=== PATIENT | male | born 1985 | race Caucasian/White ===

== ENCOUNTER 2019-05-22 02:29 | Emergency (ER) | payer SELFPAY ==
[2019-05-22 03:15] VITALS: BMI 18.9
--- NOTE | 2019-05-22 05:35 | PDOC ---
History of Present Illness - General Chief Complaint: Nausea/Vomiting Stated Complaint: HEADACHE/VOMITING Time Seen by Provider: 05/22/19 05:19 History Source: Patient Exam Limitations: No Limitations - History of Present Illness Initial Comments: 05/22/19 05:35 33 yo M with no past medical history presents to the emergency department with headache, nasal congestion, and poor appetite since yesterday. Denies trauma. Denies acute onset. Pain was gradual onset. Throbbing in nature and located in the temples, occipital, and frontal region. Denies FND and visual disturbance. Denies nausea and vomiting. Denies fever. Denies recent sick contacts. Allergies: NKDA Shx: None Past History - Past Medical History Allergies/Adverse Reactions: Allergies Allergy/AdvReac Type Severity Reaction Status Date / Time No Known Allergies Allergy Verified 05/22/19 03:15 Home Medications: Ambulatory Orders NK [No Known Home Medication] 05/22/19 - Suicide/Smoking/Psychosocial Hx Smoking History: Never smoked Hx Alcohol Use: Yes Drug/Substance Use Hx: No Review of Systems - Review of Systems Able to Perform ROS?: Yes Is the patient limited Persian proficient: No Constitutional: No: Chills, Diaphoresis, Fever, Weakness HEENTM: Yes: Nose Congestion. No: Eye Pain, Ear Pain, Nose Pain, Throat Pain, Mouth Pain Respiratory: No: Cough, Shortness of Breath, SOB with Exertion Cardiac (ROS): No: Chest Pain, Lightheadedness, Palpitations, Syncope ABD/GI: No: Constipated, Diarrhea, Nausea, Rectal Bleeding, Vomiting, Tarry Stools : No: Burning, Dysuria, Hematuria, Incontinence Musculoskeletal: No: Back Pain, Joint Pain, Neck Pain Integumentary: No: Bruising, Erythema, Rash Neurological: Yes: Headache. No: Numbness, Paresthesia, Tingling, Tremors, Ataxia Psychiatric: No: Change in Appetite Endocrine: No: Unexplained Weight Gain Hematologic/Lymphatic: No: Anemia *Physical Exam - Vital Signs Last Vital Signs Temp Pulse Resp BP Pulse Ox 98.6 F 81 18 122/85 100 05/22/19 03:25 05/22/19 03:25 05/22/19 03:25 05/22/19 03:25 05/22/19 03:25 - Physical Exam General Appearance: Yes: Nourished, Appropriately Dressed. No: Apparent Distress, Intoxicated HEENT: positive: EOMI, MARLON, Normal Voice, Symmetrical, TMs Normal, Pharynx Normal, Nasal Congestion, Rhinorrhea, Hearing Grossly Normal. negative: Normal ENT Inspection, Pale Conjunctivae, Scleral Icterus (R), Scleral Icterus (L), Muffled/Hoarse voice, Pharyngeal Erythema, Tonsillar Exudate, Tonsillar Erythema , Sinus Tenderness Neck: positive: Trachea midline, Supple. negative: Tender, Lymphadenopathy (R) , Lymphadenopathy (L), Tender lateral, Tender midline Respiratory/Chest: positive: Lungs Clear, Normal Breath Sounds. negative: Chest Tender, Respiratory Distress, Accessory Muscle Use, Crackles, Rales, Rhonchi, Stridor, Wheezing, Hyperresonant Cardiovascular: positive: Regular Rhythm, Regular Rate, S1, S2. negative: Systolic Murmur Gastrointestinal/Abdominal: positive: Normal Bowel Sounds, Flat, Soft. negative : Tender, Distended, Guarding, Rebound Lymphatic: negative: Adenopathy Musculoskeletal: positive: Normal Inspection. negative: CVA Tenderness, Vertebral Tenderness Extremity: positive: Normal Capillary Refill, Normal Inspection, Normal Range of Motion. negative: Tender, Swelling, Calf Tenderness Integumentary: positive: Normal Color, Dry, Warm. negative: Cold, Clammy, Swelling, Ecchymosis Neurologic: positive: polisher eyeglass frames II-XII NML intact, Fully Oriented, Alert, Normal Mood/ Affect, Normal Response, Motor Strength 5/5. negative: EOM Palsy, Numbness, Sensory Deficit ED Treatment Course - LABORATORY CBC & Chemistry Diagram: 05/22/19 06:20 05/22/19 06:20 Medical Decision Making - Medical Decision Making 33 yo M with no past medical history presents to the emergency department with headache, nasal congestion, and poor appetite since yesterday. Denies trauma. Initial vitals: Initial Vital Signs Temp Pulse Resp BP Pulse Ox 98.3 F 73 16 123/87 100 05/22/19 02:29 05/22/19 02:29 05/22/19 02:29 05/22/19 02:29 05/22/19 02:29 Work up: ddx: URI vs sinusitis will give pseudophedrine, claritin will order cbc, cmp will reassess. Laboratory Tests 05/22/19 05/22/19 06:20 06:20 WBC 10.2 H RBC 4.87 Hgb 15.1 Hct 44.1 MCV 90.6 MCH 31.1 MCHC 34.3 RDW 13.4 Plt Count 230 MPV 9.7 Absolute Neuts (auto) 7.9 Neutrophils % 76.9 Lymphocytes % 17.6 Monocytes % 4.2 Eosinophils % 0.7 Basophils % 0.6 Nucleated RBC % 0 Sodium 140 Potassium 4.2 Chloride 106 Carbon Dioxide 28 Anion Gap 5 L BUN 11.4 Creatinine 0.9 Est GFR (CKD-EPI)AfAm 131.44 Est GFR (CKD-EPI)NonAf 113.41 Random Glucose 133 H Calcium 9.1 Total Bilirubin 0.5 AST 25 ALT 29 Alkaline Phosphatase 76 Total Protein 8.0 Albumin 4.2 Patient to be signed out to Dr. Montejo *DC/Admit/Observation/Transfer Diagnosis at time of Disposition: Headache Qualifiers: Headache type: unspecified Headache chronicity pattern: acute headache Intractability: not intractable Qualified Code(s): R51 - Headache - Discharge Dispostion Disposition: HOME Condition at time of disposition: Improved - Referrals Referrals: [facility] – [place] Internal Med at [place] [Provider Group] Rolando Kothari DO [Staff Physician] - - Patient Instructions Printed Discharge Instructions: DI for Common Cold, DI for Headache Additional Instructions: You came into the ER with a headache and a cold. We gave you some medications which made you feel much better. Please make sure to follow up with both your primary care doctor and a neurologist in the next 3 to 5 days. Come back to the ER immediately if your pain worsens or you have any other new or worsening concerns. Thank you for coming to the [facility] ER. We hope you feel better soon! Print Language: MOHAWK - Post Discharge Activity
[2019-05-22] MEDS ORDERED: PSEUDOEPHEDRINE HCL 30 MG TABLET PO ONE (05:37)
[2019-05-22] MEDS ORDERED: LORATADINE 10 MG TABLET PO ONE (05:37)
[2019-05-22] MEDS ORDERED: PSEUDOEPHEDRINE HCL 60 MG TABLET ONE (05:41)
[2019-05-22] MEDS ORDERED: LORATADINE 10 MG TABLET ONE (05:41)
[2019-05-22] MEDS ORDERED: SODIUM CHLORIDE 0.9% 500 ML INFUS.BAG IV ONE (05:55)
[2019-05-22] MEDS ORDERED: METOCLOPRAMIDE HCL INJECTION 10 MG/2 ML VIAL IM ONE (05:55)
--- NOTE | 2019-05-22 06:09 | PDOC ---
Attending Attestation - Resident Resident Name: Maximus Lafleur - ED Attending Attestation I have performed the following: I have examined & evaluated the patient, The case was reviewed & discussed with the resident, I agree w/resident's findings & plan - HPI HPI: 05/22/19 06:08 Pt has nausea and vomiting and sinus pressure and headache and stuffiness. - Physicial Exam PE: 05/22/19 06:09 Agree with resident exam. - Medical Decision Making 05/22/19 07:19 Labs are normal; vitals normal; radiography pending. Pt will be signed out to the day team. EKG pending.
[2019-05-22] MEDS ORDERED: METOCLOPRAMIDE HCL INJECTION 10 MG/2 ML VIAL ONE (06:22)
[2019-05-22 06:37] LABS: BASO % 0.6 % (0-2.0); EOS % 0.7 % (0-4.5); HEMATOCRIT 44.1 % (35.4-49); HEMOGLOBIN 15.1 GM/dL (11.7-16.9); LYMPH % 17.6 % (8-40); MCH 31.1 pg (25.7-33.7); MCHC 34.3 g/dl (32.0-35.9); MEAN CELL VOLUME 90.6 fl (80-96); MEAN PLT VOLUME 9.7 fl (7.5-11.1); MONO % 4.2 % (3.8-10.2); NEUT % 76.9 % (42.8-82.8); PLATELET COUNT 230 K/MM3 (134-434); RBC 4.87 M/mm3 (4.00-5.60); RDW 13.4 % (11.9-15.9); WHITE BLOOD COUNT 10.2 K/mm3 (4.0-10.0)
[2019-05-22] MEDS ORDERED: METOCLOPRAMIDE HCL INJECTION 10 MG/2 ML VIAL IVPB ONE (06:37)
[2019-05-22 06:54] LABS: ALBUMIN 4.2 g/dl (3.4-5.0); BILIRUBIN,TOTAL 0.5 mg/dL (0.2-1); BLOOD UREA NITROGEN 11.4 mg/dL (7-18); CALCIUM 9.1 mg/dL (8.5-10.1); CREATININE 0.9 mg/dL (0.55-1.3); POTASSIUM 4.2 mmol/L (3.5-5.1)
--- NOTE | 2019-05-22 07:29 | PDOC ---
*Physical Exam - Vital Signs Last Vital Signs Temp Pulse Resp BP Pulse Ox 98.6 F 86 17 123/80 99 05/22/19 07:08 05/22/19 07:08 05/22/19 07:08 05/22/19 07:08 05/22/19 07:08 - Physical Exam General Appearance: Yes: Nourished, Appropriately Dressed. No: Apparent Distress HEENT: positive: Normal ENT Inspection, Normal Voice Neck: positive: Supple Respiratory/Chest: positive: Lungs Clear, Normal Breath Sounds Cardiovascular: positive: Regular Rhythm, Regular Rate Vascular Pulses: Dorsalis-Pedis (R): 2+, Doralis-Pedis (L): 2+ Gastrointestinal/Abdominal: positive: Soft Rectal Exam: positive: deferred Lymphatic: negative: Adenopathy Musculoskeletal: positive: Normal Inspection Extremity: positive: Normal Capillary Refill, Normal Inspection, Normal Range of Motion Integumentary: positive: Normal Color, Dry, Warm Neurologic: positive: Fully Oriented, Alert, Normal Mood/Affect ED Treatment Course - LABORATORY CBC & Chemistry Diagram: 05/22/19 06:20 05/22/19 06:20 - ADDITIONAL ORDERS Additional order review: Laboratory Results 05/22/19 06:20 Sodium 140 Potassium 4.2 Chloride 106 Carbon Dioxide 28 Anion Gap 5 L BUN 11.4 Creatinine 0.9 Est GFR (CKD-EPI)AfAm 131.44 Est GFR (CKD-EPI)NonAf 113.41 Random Glucose 133 H Calcium 9.1 Total Bilirubin 0.5 AST 25 ALT 29 Alkaline Phosphatase 76 Total Protein 8.0 Albumin 4.2 05/22/19 06:20 RBC 4.87 MCV 90.6 MCHC 34.3 RDW 13.4 MPV 9.7 Neutrophils % 76.9 Lymphocytes % 17.6 Monocytes % 4.2 Eosinophils % 0.7 Basophils % 0.6 - Medications Given in the ED: ED Medications Discontinued Medications Generic Name Dose Route Start Last Admin Trade Name Freq PRN Reason Stop Dose Admin Loratadine 10 mg 05/22/19 05:37 05/22/19 05:46 Claritin - PO 05/22/19 05:38 10 mg ONCE ONE Administration Metoclopramide HCl 10 mg 05/22/19 05:55 05/22/19 06:38 Reglan Injection - IM 05/22/19 05:56 Not Given ONCE ONE Metoclopramide HCl 10 mg 05/22/19 06:37 05/22/19 06:39 Reglan Injection - IVPB 05/22/19 06:38 10 mg ONCE ONE Administration Pseudoephedrine HCl 30 mg 05/22/19 05:37 05/22/19 05:46 Sudafed - PO 05/22/19 05:38 30 mg ONCE ONE Administration Sodium Chloride 1,000 ml 05/22/19 05:55 05/22/19 06:32 Normal Saline - IV 05/22/19 05:56 1,000 ml ONCE ONE Administration Medical Decision Making - Medical Decision Making Patient signed out to me from night team pending re-evaluation. On my re-assessment the patient is completely asymptomatic. He reported complete relief of his headache and other symptoms and requests to be discharged. EKG: NS rate of 82, narrow complexes, normal axis, no hypertrophy, benign early repol in lead V2, no abnormal TWI. Impression: Normal EKG and normal sinus rhythm. Disposition: Home with PCP follow up. *DC/Admit/Observation/Transfer Diagnosis at time of Disposition: Headache Qualifiers: Headache type: unspecified Headache chronicity pattern: acute headache Intractability: not intractable Qualified Code(s): R51 - Headache - Discharge Dispostion Disposition: HOME Condition at time of disposition: Improved Decision to Admit order: No - Referrals Referrals: [facility] [place] [facility] [place] [Provider Group] Rolando Kothari DO [Staff Physician] - - Patient Instructions Printed Discharge Instructions: DI for Headache, DI for Common Cold Additional Instructions: You came into the ER with a headache and a cold. We gave you some medications which made you feel much better. Please make sure to follow up with both your primary care doctor and a neurologist in the next 3 to 5 days. Come back to the ER immediately if your pain worsens or you have any other new or worsening concerns. Thank you for coming to the [facility] ER. We hope you feel better soon! Print Language: SAMI - Post Discharge Activity
--- NOTE | 2019-05-22 07:33 | PDOC ---
*Physical Exam - Vital Signs Last Vital Signs Temp Pulse Resp BP Pulse Ox 98.6 F 86 17 123/80 99 05/22/19 07:08 05/22/19 07:08 05/22/19 07:08 05/22/19 07:08 05/22/19 07:08 - Physical Exam Comments: 05/22/19 07:31 Gen: aaox3, nad heart: +s1s2 reg lungs: cta b/l abd:soft, nt/nd +bs ext: no c/c/e neuro: cn ii-xii grossly intact, no focal deficits, muscle strength 5/5 UE and LE, sensation intact skin: no rashes ED Treatment Course - LABORATORY CBC & Chemistry Diagram: 05/22/19 06:20 05/22/19 06:20 - ADDITIONAL ORDERS Additional order review: Laboratory Results 05/22/19 06:20 Sodium 140 Potassium 4.2 Chloride 106 Carbon Dioxide 28 Anion Gap 5 L BUN 11.4 Creatinine 0.9 Est GFR (CKD-EPI)AfAm 131.44 Est GFR (CKD-EPI)NonAf 113.41 Random Glucose 133 H Calcium 9.1 Total Bilirubin 0.5 AST 25 ALT 29 Alkaline Phosphatase 76 Total Protein 8.0 Albumin 4.2 05/22/19 06:20 RBC 4.87 MCV 90.6 MCHC 34.3 RDW 13.4 MPV 9.7 Neutrophils % 76.9 Lymphocytes % 17.6 Monocytes % 4.2 Eosinophils % 0.7 Basophils % 0.6 - Medications Given in the ED: ED Medications Discontinued Medications Generic Name Dose Route Start Last Admin Trade Name Freq PRN Reason Stop Dose Admin Loratadine 10 mg 05/22/19 05:37 05/22/19 05:46 Claritin - PO 05/22/19 05:38 10 mg ONCE ONE Administration Metoclopramide HCl 10 mg 05/22/19 05:55 05/22/19 06:38 Reglan Injection - IM 05/22/19 05:56 Not Given ONCE ONE Metoclopramide HCl 10 mg 05/22/19 06:37 05/22/19 06:39 Reglan Injection - IVPB 05/22/19 06:38 10 mg ONCE ONE Administration Pseudoephedrine HCl 30 mg 05/22/19 05:37 05/22/19 05:46 Sudafed - PO 05/22/19 05:38 30 mg ONCE ONE Administration Sodium Chloride 1,000 ml 05/22/19 05:55 05/22/19 06:32 Normal Saline - IV 05/22/19 05:56 1,000 ml ONCE ONE Administration Medical Decision Making - Medical Decision Making 05/22/19 07:32 a/p: 33yo male with a rodriguez and congestion -pt neuro intact -signed out from the prior team pending ivf hydation and re-eval - labs reviewed -all symptoms resolved -no abd pain, no nausea -discussed all reasons to return to the ED and need for follow up -stable for dc to home *DC/Admit/Observation/Transfer Diagnosis at time of Disposition: Headache Qualifiers: Headache type: unspecified Headache chronicity pattern: acute headache Intractability: not intractable Qualified Code(s): R51 - Headache - Discharge Dispostion Disposition: HOME Condition at time of disposition: Fair Decision to Admit order: No - Referrals Referrals: [facility] [place] [facility] at [place] [Provider Group] Rolando Kothari DO [Staff Physician] - - Patient Instructions Printed Discharge Instructions: DI for Common Cold, DI for Headache Additional Instructions: You came into the ER with a headache and a cold. We gave you some medications which made you feel much better. Please make sure to follow up with both your primary care doctor and a neurologist in the next 3 to 5 days. Come back to the ER immediately if your pain worsens or you have any other new or worsening concerns. Thank you for coming to the [facility] ER. We hope you feel better soon! Print Language: SINHALA - Post Discharge Activity
[2019-05-22 08:47] VITALS: BP 122/74; PULSE 74; TEMP 98
--- NOTE | 2019-05-22 11:29 | EKG ---
Test Reason : Blood Pressure : / mmHG Vent. Rate : 082 BPM Atrial Rate : 082 BPM P-R Int : 138 ms QRS Dur : 092 ms QT Int : 354 ms P-R-T Axes : 076 067 045 degrees QTc Int : 413 ms NORMAL SINUS RHYTHM NORMAL ECG NO PREVIOUS ECGS AVAILABLE Confirmed by AMAIRANI SR MD ([id number]) on 05/22/2019 11:29:03 AM Referred By: Confirmed By:AMAIRANI SR MD
== END 2019-05-22 08:47 | disposition home or self-care (01) ==
LOC: JER 02:29
PROC: 3E033GC Introduction of Other Therapeutic Substance into Peripheral Vein, Percutaneous Approach (ICD-10-PCS; principal; 2019-05-22)
DX: J00 Acute nasopharyngitis [common cold] (principal); R51 Headache
CPT/HCPCS: 36415; 80053; 85025; 93005; 93010; 99283-25